=== PATIENT | male | born 1945 | race Two or more races ===

== ENCOUNTER 2025-02-17 11:21 | Emergency (ER) | payer OTHER ==
[~2025-02-17] VITALS: Ht 167.6 cm; Wt 68.0 kg
[2025-02-17 11:49] VITALS: BP 126/63; O2SAT 95
[2025-02-17] MEDS ORDERED: TRAMADOL HCL 50 MG TABLET PO ONE (13:15)
[2025-02-17 13:40] LABS: BASO % 0.4 % (0.1-1.2); EOS # 0.00 (0.04-0.54); EOS % 0.0 % (0.7-7.0); LYMPH # 0.54 (1.18-3.74); LYMPH % 11.2 % (19.3-53.1); MEAN PLATELET VOLUME 8.60 fl (9.4-12.4); MONO # 0.20 (0.24-0.82); MONO % 4.1 % (4.7-12.5); NEUT # 4.04 (1.56-6.13); NEUT % 83.5 % (34.0-71.1); RED CELL DISTRIBUTION WIDTH 15.9 % (11.6-14.4)
[2025-02-17 13:47] LABS: URINE APPEARANCE Cloudy; URINE BILIRRUBIN Small (NEGATIVE); URINE BLOOD Negative; URINE COLOR Dark Yellow; URINE GLUCOSE Negative (NEGATIVE); URINE KETONE Trace (NEGATIVE); URINE LEUKOCYTE Trace; URINE NITRATE Negative; URINE UROBILINOGEN 1.0 E.U./dl
[2025-02-17 13:54] LABS: URINE BACTERIA 48.0 uL (0.0-1933); URINE CAST 4.39 uL (0.0-1.40); URINE EPITHELIAL CELLS 58.4 uL (0.0-38.8); URINE RBC 5.5 uL (0.0-20.8); URINE WBC 4.7 uL (0.0-23.2)
[2025-02-17 14:04] LABS: ALT/SGPT 20.0 U/L (12-78); GLUCOSE FASTING 120.0 mg/dL (65-100); OSMOLALITY SERUM 284.0 MOSM/KG (275-295)
[2025-02-17 14:04] LABS: URINE PROTEIN 100 (NEGATIVE)
[2025-02-17 14:07] LABS: AST/SGOT 37.0 U/L (15-37); BILIRUBIN TOTAL 0.67 mg/dL (0.3-1.2); BUN CREA RATIO 29.0 (7.0-25.0); CREATININE SERUM 0.98 mg/dL (0.70-1.30); GFR 73.97; GLOBULINA 5.8 G/DL (2.4-3.5)
[2025-02-17 14:13] LABS: INR 1.11
[2025-02-17 14:14] LABS: D DIMER 7.07 MG/L
[2025-02-17] MEDS ORDERED: 0.9 % SODIUM CHLORIDE 500 ML IV ONE (16:30)
== END 2025-02-17 21:21 | disposition home or self-care (01) ==
LOC: ER 11:22
PROVIDERS: General Practice
DX: R00.2 Palpitations (principal); Z85.038 Personal history of other malignant neoplasm of large intestine; Z85.05 Personal history of malignant neoplasm of liver; K40.20 Bilateral inguinal hernia, without obstruction or gangrene, not specified as recurrent
CPT/HCPCS: 36415; 71260; 74177; 82803; 93005; 93971; 96365; 99284; J7030; Q9965

== ENCOUNTER 2025-02-21 14:17 | Inpatient (IN) | payer OTHER ==
[~2025-02-21] VITALS: Ht 167.6 cm; Wt 66.7 kg
[2025-02-21] MEDS ORDERED: 0.9 % SODIUM CHLORIDE 1,000 ML IV STA (15:47)
[2025-02-21] MEDS ORDERED: PANTOPRAZOLE SODIUM 40 MG/VIAL VIAL IV PUSH STA (16:10)
[2025-02-21] MEDS ORDERED: ONDANSETRON HCL 2 MG/ML VIAL IV STA (16:10)
[2025-02-21] MEDS ORDERED: ONDANSETRON HCL 2 MG/ML VIAL ONE (16:15)
[2025-02-21 16:32] LABS: BASO % 0.9 % (0.1-1.2); EOS # 0.00 (0.04-0.54); EOS % 0.0 % (0.7-7.0); LYMPH # 1.78 (1.18-3.74); LYMPH % 17.7 % (19.3-53.1); MEAN PLATELET VOLUME 9.90 fl (9.4-12.4); MONO # 1.90 (0.24-0.82); NEUT # 5.80 (1.56-6.13); NEUT % 57.8 % (34.0-71.1); RED CELL DISTRIBUTION WIDTH 16.6 % (11.6-14.4)
[2025-02-21 16:43] LABS: MONO % 18.9 % (4.7-12.5)
[2025-02-21 16:58] LABS: ALT/SGPT 27.0 U/L (12-78); AST/SGOT 47.0 U/L (15-37); BILIRUBIN TOTAL 1.78 mg/dL (0.3-1.2); BUN CREA RATIO 26.0 (7.0-25.0); CREATININE SERUM 1.97 mg/dL (0.70-1.30); GFR 33.05; GLOBULINA 5.3 G/DL (2.4-3.5); GLUCOSE FASTING 128.0 mg/dL (65-100); OSMOLALITY SERUM 297.0 MOSM/KG (275-295)
[2025-02-21 17:10] LABS: BAND MAN 1.0 %; LYMPHOCYTE MAN 16.0 %; MONOCYTE MAN 17.0 %; NEUTROPHILS MAN 59.0 %
[2025-02-21 17:13] LABS: METAMYELOCYTE 2.0 %; MYELOCYTE 1.0 %
[2025-02-21] MEDS ORDERED: PIPERACILLIN/TAZOBACTAM SODIUM 3.375 GM in 0.9 % SODIUM CHLORIDE 100 ML IV SCH (20:46)
[2025-02-21] MEDS ORDERED: PANTOPRAZOLE SODIUM 40 MG in 0.9 % SODIUM CHLORIDE 8 ML IV PUSH SCH (20:54)
[2025-02-21] MEDS ORDERED: ONDANSETRON HCL 4 MG in 0.9 % SODIUM CHLORIDE 50 ML IV PRN (21:00)
[2025-02-21] MEDS ORDERED: NOREPINEPHRINE BITARTRATE 8 MG in DEXTROSE 5 % IN WATER 250 ML IV SCH (21:00)
[2025-02-21] MEDS ORDERED: 0.9 % SODIUM CHLORIDE 1,000 ML IV SCH (21:00)
[2025-02-21] MEDS ORDERED: NOREPINEPHRINE BITARTRATE 1 MG/ML AMPUL IV ONE (21:14)
[2025-02-21] MEDS ORDERED: PIPERACILLIN/TAZOBACTAM SODIUM 3.375 GM VIAL IV ONE (21:15)
[2025-02-21 22:27] LABS: INR 1.38
[2025-02-21 23:00] VITALS: BP 114/59; O2SAT 93
[2025-02-22] VITALS (24 sets, daily range): BP systolic 91–135; BP diastolic 57–74; O2SAT 93–99
[2025-02-22] MEDS ORDERED: IPRATROPIUM BROMIDE 0.5 MG/2.5 ML AMPUL.NEB IH SCH (17:27)
[2025-02-23] VITALS (15 sets, daily range): BP systolic 109–131; BP diastolic 61–77; O2SAT 96–100
[2025-02-23 14:20] LABS: BASO % 0.3 % (0.1-1.2); EOS # 0.00 (0.04-0.54); EOS % 0.0 % (0.7-7.0); LYMPH # 1.25 (1.18-3.74); LYMPH % 13.0 % (19.3-53.1); MEAN PLATELET VOLUME 10.40 fl (9.4-12.4); MONO # 0.65 (0.24-0.82); MONO % 6.8 % (4.7-12.5); NEUT # 7.35 (1.56-6.13); NEUT % 76.6 % (34.0-71.1); RED CELL DISTRIBUTION WIDTH 16.3 % (11.6-14.4)
[2025-02-23 15:13] LABS: BAND MAN 9.0 %; LYMPHOCYTE MAN 7.0 %; METAMYELOCYTE 3.0 %; MONOCYTE MAN 8.0 %; MYELOCYTE 2.0 %; NEUTROPHILS MAN 69.0 %
[2025-02-24 04:00] VITALS: BP 122/72; O2SAT 96
[2025-02-24 07:13] VITALS: BP 126/68; O2SAT 96
[2025-02-24 07:32] LABS: BUN CREA RATIO 45.0 (7.0-25.0); CREATININE SERUM 1.29 mg/dL (0.70-1.30); GFR 53.87; GLUCOSE FASTING 99.0 mg/dL (65-100)
[2025-02-24 07:53] LABS: OSMOLALITY SERUM 324.0 MOSM/KG (275-295)
[2025-02-24] MEDS ORDERED: MAGNESIUM SULFATE IN WATER 2 GM/50 ML PIGGYBAG IV NR (08:15)
[2025-02-24] MEDS ORDERED: DEXTROSE 5 % IN WATER 1,000 ML IV SCH (08:15)
[2025-02-24] MEDS ORDERED: POTASSIUM CHLORIDE 20MEQ/100ML H2O PB IV SCH (09:00)
[2025-02-24 12:00] VITALS: BP 105/70; O2SAT 98
[2025-02-24 15:08] VITALS: BP 108/55; O2SAT 95
[2025-02-24 19:50] LABS: ALT/SGPT 79.0 U/L (12-78); AST/SGOT 113.0 U/L (15-37); BILIRUBIN TOTAL 1.89 mg/dL (0.3-1.2); BUN CREA RATIO 40.0 (7.0-25.0); CREATININE SERUM 1.28 mg/dL (0.70-1.30); GFR 54.35; GLOBULINA 5.6 G/DL (2.4-3.5); GLUCOSE FASTING 113.0 mg/dL (65-100); OSMOLALITY SERUM 318.0 MOSM/KG (275-295)
[2025-02-24 22:35] VITALS: BP 90/65; O2SAT 95
[2025-02-24] MEDS ORDERED: ISOPROPYL ALCOHOL 30 ML OUNCE TOP ONE (22:45)
[2025-02-24] MEDS ORDERED: BUPIVACAINE HCL/PF 0.25% 30ML VIAL InF ONE (22:45)
[2025-02-24 23:00] VITALS: BP 92/60; O2SAT 100
[2025-02-24] MEDS ORDERED: KETOROLAC TROMETHAMINE 30 MG VIAL IV PRN (23:45)
[2025-02-25] VITALS (9 sets, daily range): BP systolic 87–128; BP diastolic 57–77; O2SAT 98–100
[2025-02-25 07:07] LABS: BASO % 0.1 % (0.1-1.2); EOS # 0.00 (0.04-0.54); EOS % 0.0 % (0.7-7.0); LYMPH # 0.78 (1.18-3.74); LYMPH % 11.0 % (19.3-53.1); MEAN PLATELET VOLUME 10.40 fl (9.4-12.4); MONO # 0.34 (0.24-0.82); MONO % 4.8 % (4.7-12.5); NEUT # 5.90 (1.56-6.13); NEUT % 82.8 % (34.0-71.1); RED CELL DISTRIBUTION WIDTH 18.4 % (11.6-14.4)
[2025-02-25 07:56] LABS: ALT/SGPT 55.0 U/L (12-78); AST/SGOT 78.0 U/L (15-37); BILIRUBIN TOTAL 1.75 mg/dL (0.3-1.2); BUN CREA RATIO 27.0 (7.0-25.0); CREATININE SERUM 2.16 mg/dL (0.70-1.30); GFR 29.71; GLOBULINA 4.2 G/DL (2.4-3.5); GLUCOSE FASTING 130.0 mg/dL (65-100)
[2025-02-25 08:07] LABS: OSMOLALITY SERUM 322.0 MOSM/KG (275-295)
[2025-02-25 08:17] LABS: BAND MAN 22.0 %; LYMPHOCYTE MAN 14.0 %; NEUTROPHILS MAN 64.0 %
[2025-02-25] MEDS ORDERED: METOCLOPRAMIDE HCL 5 MG/ML VIAL IV SCH (09:36)
[2025-02-25] MEDS ORDERED: PIPERACILLIN/TAZOBACTAM SODIUM 2.25 GM in DEXTROSE 5 % IN WATER 50 ML IV SCH (12:00)
[2025-02-25] MEDS ORDERED: ALBUMIN HUMAN-25 0.25GM/ML (50ML) VIAL IV STA (14:11)
[2025-02-25] MEDS ORDERED: NOREPINEPHRINE BITARTRATE 8 MG in DEXTROSE 5 % IN WATER 250 ML IV SCH (14:30)
[2025-02-25 16:05] LABS: BUN CREA RATIO 25 (7.0-25.0); CREATININE SERUM 2.15 mg/dL (0.70-1.30); GFR 29.87; GLUCOSE FASTING 136 mg/dL (65-100); HDL 20 mg/dl (40-60); VLDL 24 (0-39)
[2025-02-25 16:07] LABS: CHOL HDL RATIO 2.5 (0-5.0); LDL 5 mg/dl (0-130); OSMOLALITY SERUM 320 MOSM/KG (275-295)
[2025-02-25] MEDS ORDERED: ALBUMIN HUMAN 0.25GM/ML (50ML) VIAL IV SCH (17:00)
[2025-02-25] MEDS ORDERED: AA 4.25%/CAL/LYTES/DEXT 5% 1,000 ML PERIFERAL SCH (17:00)
[2025-02-25] MEDS ORDERED: FAT EMULSIONS 250 ML IV SCH (21:00)
[2025-02-26] VITALS (10 sets, daily range): BP systolic 99–125; BP diastolic 59–75; O2SAT 94–99
[2025-02-26 06:40] LABS: BASO % 0.1 % (0.1-1.2); EOS # 0.00 (0.04-0.54); EOS % 0.0 % (0.7-7.0); LYMPH # 1.27 (1.18-3.74); LYMPH % 12.9 % (19.3-53.1); MEAN PLATELET VOLUME 10.70 fl (9.4-12.4); MONO # 0.23 (0.24-0.82); MONO % 2.3 % (4.7-12.5); NEUT # 8.10 (1.56-6.13); NEUT % 82.2 % (34.0-71.1); RED CELL DISTRIBUTION WIDTH 18.9 % (11.6-14.4)
[2025-02-26 07:00] LABS: ALT/SGPT 42.0 U/L (12-78); AST/SGOT 60.0 U/L (15-37); BILIRUBIN TOTAL 0.85 mg/dL (0.3-1.2); BUN CREA RATIO 28.0 (7.0-25.0); CREATININE SERUM 2.6 mg/dL (0.70-1.30); GFR 23.99; GLOBULINA 4.0 G/DL (2.4-3.5); GLUCOSE FASTING 133.0 mg/dL (65-100); OSMOLALITY SERUM 314.0 MOSM/KG (275-295)
[2025-02-26] MEDS ORDERED: MEROPENEM 500 MG/VIAL VIAL IV SCH ×2 (09:00→21:00)
[2025-02-27 04:00] VITALS: BP 106/57
[2025-02-27 07:34] VITALS: BP 119/62; O2SAT 98
[2025-02-27 08:12] LABS: BASO % 0.2 % (0.1-1.2); EOS # 0.01 (0.04-0.54); EOS % 0.1 % (0.7-7.0); LYMPH # 1.05 (1.18-3.74); LYMPH % 9.2 % (19.3-53.1); MEAN PLATELET VOLUME 10.90 fl (9.4-12.4); MONO # 0.36 (0.24-0.82); MONO % 3.1 % (4.7-12.5); NEUT # 9.85 (1.56-6.13); NEUT % 85.8 % (34.0-71.1); RED CELL DISTRIBUTION WIDTH 17.3 % (11.6-14.4)
[2025-02-27 08:53] LABS: BILIRUBIN TOTAL 1.12 mg/dL (0.3-1.2); CREATININE SERUM 1.38 mg/dL (0.70-1.30); GFR 49.83
[2025-02-27] MEDS ORDERED: POTASSIUM CHLORIDE IN WATER 100 ML IV NR (09:15)
[2025-02-27 09:25] LABS: BAND MAN 2.0 %; LYMPHOCYTE MAN 10.0 %; MONOCYTE MAN 1.0 %; NEUTROPHILS MAN 85.0 %
[2025-02-27 09:38] LABS: ALT/SGPT < 120 U/L (12-78); AST/SGOT < 60 U/L (15-37)
[2025-02-27 09:50] LABS: GLUCOSE FASTING 292 mg/dL (65-100)
[2025-02-27] MEDS ORDERED: INSULIN LISPRO 1,000 UNIT/10 ML UNITS SUBCUTANEO PRN (10:30)
[2025-02-27 12:00] VITALS: BP 134/78; O2SAT 98
[2025-02-27 12:46] LABS: BUN CREA RATIO 55 (7.0-25.0)
[2025-02-27 12:50] LABS: GLOBULINA 3.9 G/DL (2.4-3.5)
[2025-02-27 12:52] LABS: OSMOLALITY SERUM 308 MOSM/KG (275-295)
[2025-02-27 15:12] VITALS: BP 119/63; O2SAT 98
[2025-02-27 15:18] LABS: BASO % 0.2 % (0.1-1.2); EOS # 0.01 (0.04-0.54); EOS % 0.1 % (0.7-7.0); LYMPH # 0.90 (1.18-3.74); LYMPH % 8.0 % (19.3-53.1); MEAN PLATELET VOLUME 10.50 fl (9.4-12.4); MONO # 0.32 (0.24-0.82); MONO % 2.8 % (4.7-12.5); NEUT # 9.79 (1.56-6.13); NEUT % 87.0 % (34.0-71.1); RED CELL DISTRIBUTION WIDTH 17.7 % (11.6-14.4)
[2025-02-27 15:42] LABS: ALT/SGPT 31.0 U/L (12-78); AST/SGOT 61.0 U/L (15-37); BILIRUBIN TOTAL 1.09 mg/dL (0.3-1.2); BUN CREA RATIO 43.0 (7.0-25.0); CREATININE SERUM 1.13 mg/dL (0.70-1.30); GFR 62.76; GLOBULINA 4.3 G/DL (2.4-3.5); GLUCOSE FASTING 86.0 mg/dL (65-100); OSMOLALITY SERUM 295.0 MOSM/KG (275-295)
[2025-02-27 20:00] VITALS: BP 136/80; O2SAT 100
[2025-02-27] MEDS ORDERED: INSULIN GLARGINE,HUM.REC.ANLOG 1,000 UNITS/10 ML UNITS SUBCUTANEO SCH (21:00)
[2025-02-27 23:05] VITALS: BP 141/82; O2SAT 99
[2025-02-28 05:33] VITALS: BP 145/76
[2025-02-28 07:23] VITALS: BP 122/64; O2SAT 100
[2025-02-28 12:00] VITALS: BP 136/90; O2SAT 99
[2025-02-28 15:14] VITALS: BP 132/84; O2SAT 100
[2025-02-28 20:00] VITALS: BP 140/83; O2SAT 100
[2025-02-28] MEDS ORDERED: FAT EMULSIONS 250 ML IV SCH (21:00)
[2025-02-28 23:27] VITALS: BP 142/82; O2SAT 95
[2025-03-01] VITALS (7 sets, daily range): BP systolic 122–145; BP diastolic 81–82; O2SAT 88–100
[2025-03-01 06:45] LABS: BUN CREA RATIO 43.0 (7.0-25.0); CREATININE SERUM 0.58 mg/dL (0.70-1.30); GFR 135.5; GLUCOSE FASTING 89.0 mg/dL (65-100); OSMOLALITY SERUM 280.0 MOSM/KG (275-295)
[2025-03-01 07:26] LABS: BASO % 0.2 % (0.1-1.2); EOS # 0.01 (0.04-0.54); EOS % 0.1 % (0.7-7.0); LYMPH # 1.02 (1.18-3.74); LYMPH % 7.5 % (19.3-53.1); MEAN PLATELET VOLUME 10.30 fl (9.4-12.4); MONO # 0.75 (0.24-0.82); MONO % 5.5 % (4.7-12.5); NEUT # 11.67 (1.56-6.13); NEUT % 85.2 % (34.0-71.1); RED CELL DISTRIBUTION WIDTH 17.1 % (11.6-14.4)
[2025-03-02 01:14] VITALS: BP 138/78; O2SAT 96
[2025-03-02 05:43] VITALS: O2SAT 90
[2025-03-02 08:00] VITALS: BP 132/82; O2SAT 95
[2025-03-02] MEDS ORDERED: MEROPENEM 500 MG/VIAL VIAL IV SCH (14:00)
[2025-03-02 16:49] VITALS: BP 137/87; O2SAT 95
[2025-03-02 17:34] VITALS: O2SAT 93
[2025-03-02 21:45] VITALS: O2SAT 91
[2025-03-03] VITALS (8 sets, daily range): BP systolic 124–155; BP diastolic 76–91; O2SAT 90–100
[2025-03-03 06:46] LABS: BASO % 0.2 % (0.1-1.2); EOS # 0.01 (0.04-0.54); EOS % 0.1 % (0.7-7.0); LYMPH # 0.80 (1.18-3.74); LYMPH % 4.8 % (19.3-53.1); MEAN PLATELET VOLUME 9.70 fl (9.4-12.4); MONO # 1.21 (0.24-0.82); MONO % 7.2 % (4.7-12.5); NEUT # 14.55 (1.56-6.13); NEUT % 86.6 % (34.0-71.1); RED CELL DISTRIBUTION WIDTH 16.5 % (11.6-14.4)
[2025-03-03 07:37] LABS: ALT/SGPT 24.0 U/L (12-78); AST/SGOT 51.0 U/L (15-37); BILIRUBIN TOTAL 0.93 mg/dL (0.3-1.2); BILIRUBIN,CONJUGATED 0.58 mg/dL (0.0-0.2); BUN CREA RATIO 37.0 (7.0-25.0); CHOL HDL RATIO 3.5 (0-5.0); CREATININE SERUM 0.71 mg/dL (0.70-1.30); GFR 107.3; GLOBULINA 5.0 G/DL (2.4-3.5); GLUCOSE FASTING 91.0 mg/dL (65-100); HDL 24.0 mg/dl (40-60); LDL 39.0 mg/dl (0-130); OSMOLALITY SERUM 273.0 MOSM/KG (275-295); VLDL 21.0 (0-39)
[2025-03-03 07:53] LABS: INR 1.12
[2025-03-03] MEDS ORDERED: FAMOTIDINE/PF 20 MG/2 ML VIAL IV SCH (11:33)
[2025-03-03] MEDS ORDERED: METOPROLOL SUCCINATE 25 MG TAB.SR.24H PO NR (12:00)
[2025-03-03] MEDS ORDERED: HALOPERIDOL LACTATE 5 MG/ML AMPUL IM PRN (21:30)
[2025-03-04] VITALS (9 sets, daily range): BP systolic 130–156; BP diastolic 71–88; O2SAT 90–98
[2025-03-04] MEDS ORDERED: METOPROLOL SUCCINATE 25 MG TAB.SR.24H PO SCH (09:00)
[2025-03-05] VITALS (9 sets, daily range): BP systolic 131–137; BP diastolic 72–82; O2SAT 89–99
[2025-03-05 08:35] LABS: BASO % 0.2 % (0.1-1.2); EOS # 0.01 (0.04-0.54); EOS % 0.0 % (0.7-7.0); LYMPH # 1.09 (1.18-3.74); LYMPH % 4.8 % (19.3-53.1); MEAN PLATELET VOLUME 10.00 fl (9.4-12.4); MONO # 1.77 (0.24-0.82); MONO % 7.8 % (4.7-12.5); NEUT # 19.70 (1.56-6.13); NEUT % 86.3 % (34.0-71.1); RED CELL DISTRIBUTION WIDTH 16.3 % (11.6-14.4)
[2025-03-05 08:59] LABS: ERYTHROCYTE SEDIMENTATION RATE 79 mm/hr (0-20)
[2025-03-06] VITALS (9 sets, daily range): BP systolic 109–145; BP diastolic 71–84; O2SAT 94–97
[2025-03-06 12:13] LABS: BASO % 0.3 % (0.1-1.2); EOS # 0.01 (0.04-0.54); EOS % 0.0 % (0.7-7.0); LYMPH # 0.83 (1.18-3.74); LYMPH % 3.6 % (19.3-53.1); MEAN PLATELET VOLUME 9.10 fl (9.4-12.4); MONO # 1.81 (0.24-0.82); MONO % 7.9 % (4.7-12.5); NEUT # 19.99 (1.56-6.13); NEUT % 87.2 % (34.0-71.1); RED CELL DISTRIBUTION WIDTH 15.9 % (11.6-14.4)
[2025-03-06 13:11] LABS: GLUCOSE FASTING 79.0 mg/dL (65-100)
[2025-03-06 13:23] LABS: BUN CREA RATIO 21.0 (7.0-25.0); GFR 12.61; OSMOLALITY SERUM 271.0 MOSM/KG (275-295)
[2025-03-06 13:26] LABS: CREATININE SERUM 4.54 mg/dL (0.70-1.30)
[2025-03-06] MEDS ORDERED: 0.9 % SODIUM CHLORIDE 1,000 ML IV SCH (14:00)
[2025-03-06] MEDS ORDERED: SODIUM BICARBONATE 1 MEQ/ML DISP.SYRIN 50ML IV NR (17:00)
[2025-03-06] MEDS ORDERED: TAMSULOSIN HCL 0.4 MG CAP PO SCH (17:00)
[2025-03-06] MEDS ORDERED: AA 5 %/CALCIUM/LYTES/DEXT 20 % 2,000 ML CENTRAL SCH (17:00)
[2025-03-06] MEDS ORDERED: SODIUM POLYSTYRENE SULFONATE 30G/8 TSP NGT SCH (18:00)
[2025-03-06] MEDS ORDERED: FAT EMULSIONS 250 ML IV SCH (21:00)
[2025-03-07] VITALS (7 sets, daily range): BP systolic 115–122; BP diastolic 74–78; O2SAT 90–97
[2025-03-07 07:35] LABS: BASO % 0.2 % (0.1-1.2); EOS # 0.02 (0.04-0.54); EOS % 0.2 % (0.7-7.0); LYMPH # 0.93 (1.18-3.74); LYMPH % 7.3 % (19.3-53.1); MEAN PLATELET VOLUME 9.10 fl (9.4-12.4); MONO # 1.53 (0.24-0.82); MONO % 11.9 % (4.7-12.5); NEUT # 10.22 (1.56-6.13); NEUT % 79.7 % (34.0-71.1); RED CELL DISTRIBUTION WIDTH 16.1 % (11.6-14.4)
[2025-03-07 08:00] LABS: BUN CREA RATIO 33.0 (7.0-25.0); CREATININE SERUM 1.9 mg/dL (0.70-1.30); GFR 34.46; GLUCOSE FASTING 97.0 mg/dL (65-100); OSMOLALITY SERUM 288.0 MOSM/KG (275-295); PHOSPHOKINASE CREATININE 58.0 U/L (39-308)
[2025-03-07] MEDS ORDERED: MEROPENEM 500 MG/VIAL VIAL IV SCH (17:00)
[2025-03-08] VITALS (9 sets, daily range): BP systolic 119–138; BP diastolic 64–76; O2SAT 89–97
[2025-03-08 09:07] LABS: BASO % 0.5 % (0.1-1.2); EOS # 0.02 (0.04-0.54); EOS % 0.2 % (0.7-7.0); LYMPH # 1.12 (1.18-3.74); LYMPH % 8.4 % (19.3-53.1); MEAN PLATELET VOLUME 8.60 fl (9.4-12.4); MONO # 1.91 (0.24-0.82); NEUT # 10.11 (1.56-6.13); NEUT % 75.9 % (34.0-71.1); RED CELL DISTRIBUTION WIDTH 16.6 % (11.6-14.4)
[2025-03-08 09:16] LABS: MONO % 14.4 % (4.7-12.5)
[2025-03-08 09:35] LABS: ALT/SGPT 13.0 U/L (12-78); AST/SGOT 49.0 U/L (15-37); BILIRUBIN TOTAL 0.54 mg/dL (0.3-1.2); BUN CREA RATIO 47.0 (7.0-25.0); CREATININE SERUM 0.62 mg/dL (0.70-1.30); GFR 125.46; GLOBULINA 4.9 G/DL (2.4-3.5); GLUCOSE FASTING 116.0 mg/dL (65-100); OSMOLALITY SERUM 290.0 MOSM/KG (275-295)
[2025-03-08] MEDS ORDERED: MEROPENEM 500 MG/VIAL VIAL IV SCH (18:00)
[2025-03-08 19:06] LABS: COVID-19 AG NEGATIVE (NEGATIVE)
[2025-03-09] VITALS (8 sets, daily range): BP systolic 132–145; BP diastolic 77–80; O2SAT 94–98
[2025-03-09 11:47] LABS: ob POSITIVE (NEGATIVE)
[2025-03-10] VITALS (8 sets, daily range): BP systolic 117–165; BP diastolic 64–83; O2SAT 95–99
[2025-03-10 07:14] LABS: INR 1.3
[2025-03-10 07:22] LABS: ALT/SGPT 13.0 U/L (12-78); AST/SGOT 51.0 U/L (15-37); BILIRUBIN TOTAL 0.8 mg/dL (0.3-1.2); BILIRUBIN,CONJUGATED 0.42 mg/dL (0.0-0.2); BUN CREA RATIO 25.0 (7.0-25.0); CHOL HDL RATIO 2.8 (0-5.0); CREATININE SERUM 0.71 mg/dL (0.70-1.30); GFR 107.3; GLOBULINA 5.1 G/DL (2.4-3.5); GLUCOSE FASTING 101.0 mg/dL (65-100); HDL 25.0 mg/dl (40-60); LDL 33.0 mg/dl (0-130); OSMOLALITY SERUM 287.0 MOSM/KG (275-295); VLDL 12.0 (0-39)
[2025-03-10 08:10] LABS: UREA CLEARANCE 55.9 ML/MIN
[2025-03-10] MEDS ORDERED: METOPROLOL SUCCINATE 25 MG TAB.SR.24H PO SCH (17:00)
[2025-03-10 23:09] LABS: BASO % 0.4 % (0.1-1.2); EOS # 0.02 (0.04-0.54); EOS % 0.1 % (0.7-7.0); LYMPH # 0.93 (1.18-3.74); LYMPH % 5.5 % (19.3-53.1); MEAN PLATELET VOLUME 9.00 fl (9.4-12.4); MONO # 1.37 (0.24-0.82); MONO % 8.1 % (4.7-12.5); NEUT # 14.53 (1.56-6.13); NEUT % 85.4 % (34.0-71.1); RED CELL DISTRIBUTION WIDTH 15.5 % (11.6-14.4)
[2025-03-11] VITALS (7 sets, daily range): BP systolic 126–135; BP diastolic 78; O2SAT 91–98
[2025-03-12] VITALS (9 sets, daily range): BP systolic 125–140; BP diastolic 75–79; O2SAT 90–98
[2025-03-12 07:48] LABS: BASO % 0.4 % (0.1-1.2); EOS # 0.03 (0.04-0.54); EOS % 0.2 % (0.7-7.0); LYMPH # 0.86 (1.18-3.74); LYMPH % 5.9 % (19.3-53.1); MEAN PLATELET VOLUME 8.80 fl (9.4-12.4); MONO # 0.96 (0.24-0.82); MONO % 6.6 % (4.7-12.5); NEUT # 12.50 (1.56-6.13); NEUT % 86.4 % (34.0-71.1); RED CELL DISTRIBUTION WIDTH 15.9 % (11.6-14.4)
[2025-03-12 07:59] LABS: ERYTHROCYTE SEDIMENTATION RATE 125 mm/hr (0-20)
[2025-03-12 08:14] LABS: BUN CREA RATIO 43.0 (7.0-25.0); CREATININE SERUM 0.4 mg/dL (0.70-1.30); GFR 208.04; GLUCOSE FASTING 63.0 mg/dL (65-100); OSMOLALITY SERUM 285.0 MOSM/KG (275-295)
[2025-03-13] VITALS: O2SAT 96
[2025-03-13 01:15] VITALS: BP 113/72; O2SAT 96
[2025-03-13 03:12] VITALS: O2SAT 92
[2025-03-13 07:45] LABS: BASO % 0.4 % (0.1-1.2); EOS # 0.05 (0.04-0.54); EOS % 0.4 % (0.7-7.0); LYMPH # 0.96 (1.18-3.74); LYMPH % 7.1 % (19.3-53.1); MEAN PLATELET VOLUME 8.90 fl (9.4-12.4); MONO # 0.97 (0.24-0.82); MONO % 7.2 % (4.7-12.5); NEUT # 11.32 (1.56-6.13); NEUT % 84.2 % (34.0-71.1); RED CELL DISTRIBUTION WIDTH 15.7 % (11.6-14.4)
[2025-03-13 08:08] VITALS: BP 138/83; O2SAT 95
[2025-03-13 17:42] VITALS: BP 135/81; O2SAT 95
[2025-03-14 00:02] VITALS: O2SAT 97
[2025-03-14 00:03] VITALS: BP 130/73; O2SAT 96
[2025-03-14 08:32] VITALS: BP 138/82; O2SAT 93
[2025-03-14 08:56] LABS: BASO % 0.4 % (0.1-1.2); EOS # 0.12 (0.04-0.54); EOS % 0.9 % (0.7-7.0); LYMPH # 1.11 (1.18-3.74); LYMPH % 8.7 % (19.3-53.1); MEAN PLATELET VOLUME 9.30 fl (9.4-12.4); MONO # 0.92 (0.24-0.82); MONO % 7.2 % (4.7-12.5); NEUT # 10.46 (1.56-6.13); NEUT % 82.3 % (34.0-71.1); RED CELL DISTRIBUTION WIDTH 16.1 % (11.6-14.4)
[2025-03-14] MEDS ORDERED: IPRATROPIUM BROMIDE 0.5 MG/2.5 ML AMPUL.NEB IH SCH (09:00)
[2025-03-14 09:49] LABS: BUN CREA RATIO 31.0 (7.0-25.0); CREATININE SERUM 0.49 mg/dL (0.70-1.30); GFR 164.61; GLUCOSE FASTING 68.0 mg/dL (65-100); OSMOLALITY SERUM 284.0 MOSM/KG (275-295)
[2025-03-14 16:00] VITALS: BP 145/83; O2SAT 94
[2025-03-14 16:59] VITALS: O2SAT 90
[2025-03-15 01:44] VITALS: BP 122/73; O2SAT 97
[2025-03-15 08:31] VITALS: BP 144/81; O2SAT 96
[2025-03-16 02:36] VITALS: BP 129/77; O2SAT 97
[2025-03-16 09:03] VITALS: BP 138/88; O2SAT 96
== END 2025-03-16 13:02 | disposition home or self-care (01) | DRG 335 ==
LOC: ER 14:18 → ICU 21:38 → ICU-2 21:38 → ICU 02-23 22:03 → SURH 02-28 23:53
PROVIDERS: Anesthesiology Pain Medicine; General Practice; Internal Medicine; Internal Medicine Infectious Disease; Internal Medicine Nephrology; Student in an Organized Health Care Education/Training Program; Surgery; ADMIT Internal Medicine; ATTEND Internal Medicine
PROC: BW21ZZZ Computerized Tomography (CT Scan) of Abdomen and Pelvis (ICD-10-PCS; 2025-02-21)
PROC: 4A12X4Z Monitoring of Cardiac Electrical Activity, External Approach (ICD-10-PCS; 2025-02-22)
PROC: 0D9670Z Drainage of Stomach with Drainage Device, Via Natural or Artificial Opening (ICD-10-PCS; 2025-02-22)
PROC: 30233N1 Transfusion of Nonautologous Red Blood Cells into Peripheral Vein, Percutaneous Approach (ICD-10-PCS; 2025-02-22)
PROC: 3E0336Z Introduction of Nutritional Substance into Peripheral Vein, Percutaneous Approach (ICD-10-PCS; 2025-02-22)
PROC: 3E0F7GC Introduction of Other Therapeutic Substance into Respiratory Tract, Via Natural or Artificial Opening (ICD-10-PCS; 2025-02-23)
PROC: 0DNW0ZZ Release Peritoneum, Open Approach (ICD-10-PCS; 2025-02-24)
PROC: 0WJG0ZZ Inspection of Peritoneal Cavity, Open Approach (ICD-10-PCS; 2025-02-24)
PROC: 0DBU0ZZ Excision of Omentum, Open Approach (ICD-10-PCS; 2025-02-24)
PROC: 0YQ50ZZ Repair Right Inguinal Region, Open Approach (ICD-10-PCS; 2025-02-24)
PROC: 0W9G0ZZ Drainage of Peritoneal Cavity, Open Approach (ICD-10-PCS; 2025-02-24)
PROC: 3E1M38Z Irrigation of Peritoneal Cavity using Irrigating Substance, Percutaneous Approach (ICD-10-PCS; 2025-02-24)
PROC: 05HY33Z Insertion of Infusion Device into Upper Vein, Percutaneous Approach (ICD-10-PCS; 2025-02-24)
PROC: 0DN80ZZ Release Small Intestine, Open Approach (ICD-10-PCS; principal; 2025-02-24 20:00)
PROC: 8E0ZXY6 Isolation (ICD-10-PCS; 2025-02-26)
PROC: BW21YZZ Computerized Tomography (CT Scan) of Abdomen and Pelvis using Other Contrast (ICD-10-PCS; 2025-03-04)
PROC: B54DZZZ Ultrasonography of Bilateral Lower Extremity Veins (ICD-10-PCS; 2025-03-06)
PROC: B34HZZZ Ultrasonography of Right Upper Extremity Arteries (ICD-10-PCS; 2025-03-14)
DX: C18.9 Malignant neoplasm of colon, unspecified (principal); A41.9 Sepsis, unspecified organism; K65.1 Peritoneal abscess; K40.30 Unilateral inguinal hernia, with obstruction, without gangrene, not specified as recurrent; K56.50 Intestinal adhesions [bands], unspecified as to partial versus complete obstruction; N17.9 Acute kidney failure, unspecified; C78.7 Secondary malignant neoplasm of liver and intrahepatic bile duct; K91.89 Other postprocedural complications and disorders of digestive system; K56.7 Ileus, unspecified; N13.8 Other obstructive and reflux uropathy; C78.02 Secondary malignant neoplasm of left lung; C78.01 Secondary malignant neoplasm of right lung; J91.0 Malignant pleural effusion; D64.89 Other specified anemias; I95.9 Hypotension, unspecified; L80 Vitiligo; R22.31 Localized swelling, mass and lump, right upper limb; R22.43 Localized swelling, mass and lump, lower limb, bilateral; B96.1 Klebsiella pneumoniae [K. pneumoniae] as the cause of diseases classified elsewhere; B96.20 Unspecified Escherichia coli [E. coli] as the cause of diseases classified elsewhere; R09.02 Hypoxemia; N18.9 Chronic kidney disease, unspecified; Z92.21 Personal history of antineoplastic chemotherapy